=== PATIENT | male | born 1940 | race African-American/Black ===

== ENCOUNTER 2018-09-26 05:08 | Observation (INO) | payer MEDICARE ==
[2018-09-24 11:23] LABS: EOSINOPHILS # (AUTO) 0.4 (0.0-0.4); EOSINOPHILS % 11.5 % (0.0-6.0); HEMATOCRIT 34.1 % (38.2-49.6); HEMOGLOBIN 10.7 g/dL (14.0-18.0); LYMPHOCYTES # (AUTO) 1.2 (1.0-3.2); LYMPHOCYTES % 37.3 % (18.0-39.1); MEAN CORPUSCULAR HEMOGLOBIN 32.5 pg (28-32); MEAN CORPUSCULAR HGB CONC 31.4 g/dL (31-35); MEAN CORPUSCULAR VOLUME 103.6 fL (81-99); MONOCYTES # (AUTO) 0.3 (0.2-0.8); MONOCYTES % 10.8 % (4.4-11.3); NEUTROPHILS # (AUTO) 1.2 (2.1-6.9); NEUTROPHILS % 39.1 % (38.7-80.0); PLATELET COUNT 152 x10e3/uL (140-360); RED BLOOD COUNT 3.29 x10e6/uL (4.3-5.7); RED CELL DISTRIBUTION WIDTH 15.7 % (11.7-14.4)
[2018-09-24 11:45] LABS: ANION GAP 8.3 mmol/L (8-16); BLOOD UREA NITROGEN 15 mg/dL (7-26); BUN/CREATININE RATIO 17 (6-25); CALCIUM 8.9 mg/dL (8.4-10.2); CARBON DIOXIDE 29 mmol/L (22-29); CHLORIDE 105 mmol/L (98-107); CREATININE, SERUM 0.86 mg/dL (0.72-1.25); EST GLOMERULAR FILTRATION RATE > 60 ML/MIN (60-); GLUCOSE 89 mg/dL (74-118); POTASSIUM 3.3 mmol/L (3.5-5.1); SODIUM 139 mmol/L (136-145)
--- NOTE | 2018-09-24 13:13 | Diagnostic Imaging Report ---
EXAMINATION: PA and lateral views of the chest. COMPARISON: None CLINICAL HISTORY: Preadmission, urinary retention DISCUSSION: Lines/tubes: None. Lungs: Prominent interstitial markings, likely age-related. No pneumonia. No edema. Pleura: No pleural effusion or pneumothorax. Heart and mediastinum: The cardiomediastinal silhouette is normal. Bones and soft tissues: No acute bony abnormalities. IMPRESSION: No acute cardiopulmonary abnormalities. Age-related interstitial change. Signed by: Dr. Jeff Hung M.D. on 09/24/2018 1:10 PM
[~2018-09-26 05:08] MED LIST: ANORO ELLIPTA INH; ASPIR 8181 MG PO; AVODART0.5 MG PO; CARVEDILOL3.125 MG PO; CIPRO500 MG PO; COREG25 MG PO; FLOMAX0.4 MG PO; IBUPROFEN200 MG PO; OMEPRAZOLE40 MG PO; PANTOPRAZOLE SO40 MG PO; ULTRAM50 MG PO; VENTOLIN HFA18 GM; ZESTRIL20 MG PO; ZOFRAN4 MG PO
--- OUTSIDE RECORDS SUMMARY | 2018-09-26 05:21 | XMS REPORT ---
Author Author [facility] Address Unknown Phone Unavailable Care Team Providers Care Account Officer Name Role Phone Elias HILTON Unavailable Unavailable Payers Payer Name Policy Type Policy Number Effective Date Expiration Date Problems This patient has no known problems. Allergies, Adverse Reactions, Alerts Allergy Name Allergy Type Status Severity Reaction(s) Onset Date Inactive Date Treating Clinician Comments No Known Allergies DA Active U 2016-07-17 00:00:00 Medications This patient has no known medications. Results Test Description Test Time Test Comments Text Results Atomic Results Result Comments CHEST 2 VIEWS 2018-09-24 13:09:00 [place] [id number] Patient Name: YAZMIN HAYNES MR #: [id number] : 1940 Age/Sex: 77/M Req #: [id number] Adm Physician: Ordered by: MARIA C HILTON MD Report #: [id number] Location: OR Room/Bed: Procedure: [id number] DX/CHEST 2 VIEWS Exam Date: 09/24/18 Exam Time: 1100 REPORT STATUS: Signed EXAMINATION: PA and lateral views of the chest. RAMIREZ RISON: None CLINICAL HISTORY: Preadmission, urinary retention DISCUSSION: Lines/tubes: None. Lungs: Prominent interstitial markings, likely age-related. No pneumonia. No edema. Pleura: No pleural effusion or pneumothorax. Heart and mediastinum: The cardiomediastinal silhouette is normal. Bones and soft tissues: No acute bony abnormalities. IMPRESSION: No acute cardiopulmonary abnormalities. Age- related interstitial change. Signed by: Dr. Theresa Doe M.D. on 09/24/2018 1:10 PM Dictated By: THERESA DOE MD [id number] Transcribed By: JONES on 09/24/18 1310 COPY TO: MARIAC HILTON MD
--- OUTSIDE RECORDS SUMMARY | 2018-09-26 05:21 | XMS REPORT | Clinical Summary ---
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 Name Role Phone Luis F Walker MD PCP Allergies No Known Allergies Medications End Date Status Medication Sig Dispensed Refills Start Date Active PROAIR HFA 90 INL 1 PUFF PO 2 mcg/actuation inhaler QID 9 Active carvedilol (COREG) 3.125 TK 1 T PO BID 0 MG tablet 8 Active GENERLAC 10 gram/15 mL TK 5 ML PO 2 solution TID PRF 8 CONSTIPATION Active ondansetron (ZOFRAN) 4 MG TK 1 T PO Q 6 2 tablet H PRN 9 Active pantoprazole (PROTONIX) TK 1 T PO D 0 40 MG EC tablet 9 Active tamsulosin (FLOMAX) 0.4 TK 1 C PO D 0 mg capsule 9 Active traMADol (ULTRAM) 50 mg TK 1 T PO QID 2 tablet 9 Active ANORO ELLIPTA 62.5-25 INL 1 PUFF PO 2 mcg/actuation blister D 8 with device 07/03/2018 Discontinued promethazine (PHENERGAN) TK 1 T PO QID 1 25 MG tablet PRF NAUSEA 9 07/07/2018 clindamycin (CLEOCIN HCL) Take 1 30 capsule 0 300 MG capsule capsule (300 9 mg total) by mouth 3 (three) times a day for 10 days. 07/27/2018 colchicine 0.6 mg tablet Take 1 tablet 30 tablet 0 (0.6 mg 9 total) by mouth daily for 30 days. 08/02/2018 atorvastatin (LIPITOR) 40 Take 1 tablet 30 tablet 0 MG tablet (40 mg total) 9 by mouth nightly for 30 days. 08/02/2018 benzonatate (TESSALON) Take 1 30 capsule 0 100 MG capsule capsule (100 9 mg total) by mouth 3 (three) times a day as needed for cough for up to 30 days. 08/03/2018 aspirin 81 mg chewable Chew 1 tablet 30 tablet 0 tablet (81 mg total) 9 daily for 30 days. 08/03/2018 clopidogrel (PLAVIX) 75 Take 1 tablet 30 tablet 0 mg tablet (75 mg total) 9 by mouth daily for 30 days. Active Problems Problem Noted Date Cellulitis of great toe, right 06/25/2018 Encounters Care Team Description Date Type Specialty Usha Mas RN 07/05/2018 Telephone Cardiovascular Sunil Montes MD 07/01/2018 Anesthesia General Surgery Event Ramon Shine MD Right lower extremity arteriogram, angioplasty 07/01/2018 Surgery General Surgery Christiano Kang CRNA 06/28/2018 Anesthesia General Surgery Event Felicity Troy DPM RIGHT FOOT HALLUX AMPUTATION 06/28/2018 Surgery General Surgery Felicity Troy DPM 06/28/2018 Orders Only Podiatry Luis F Walker MD Cellulitis of great toe, right (Primary Dx); Gangrene of toe (HCC) 06/25/2018 [facility] General Internal Medicine - Encounter 07/03/2018 after 09/25/2017 Family History Medical History Relation Name Comments Cancer Brother Cancer Mother Heart disease Mother Hypertension Mother Cancer Sister Relation Name Status Comments Brother Father Mother Sister Social History Date Tobacco Use Types Packs/Day Years Used Quit: 06/05/2017 Former Smoker Cigarettes 1 72 Smokeless Tobacco: Never Used Alcohol Use Drinks/Week oz/Week Comments No hx of alcohol use Alcohol Habits Answer Date Recorded How often do you have a drink containing alcohol? Never 06/28/2018 How many drinks containing alcohol do you have on Not asked a typical day when you are drinking? How often do you have six or more drinks on one Not asked occasion? Sex Assigned at Date Recorded Not on file Industry Job Start Date Occupation Not on file Not on file Not on file Travel End Travel History Travel Start No recent travel history available. Last Filed Vital Signs Time Taken Vital Sign Reading 07/03/2018 10:47 AM QUALITY AUDITOR Blood Pressure 131/60 07/03/2018 10:47 AM QUALITY AUDITOR Pulse 64 07/03/2018 10:47 AM QUALITY AUDITOR Temperature 36.6 C (97.8 F) 07/03/2018 10:47 AM QUALITY AUDITOR Respiratory Rate 18 07/03/2018 10:47 AM QUALITY AUDITOR Oxygen Saturation 97% - Inhaled Oxygen - Concentration 07/02/2018 8:03 PM QUALITY AUDITOR Weight 63.5 kg (140 lb 1.6 oz) 07/01/2018 2:45 PM QUALITY AUDITOR Height 198.1 cm (6' 6") 07/02/2018 8:03 PM QUALITY AUDITOR Body Mass Index 16.19 Plan of Treatment Health Maintenance Due Date Last Done Comments SHINGLES VACCINES (#1) 1988 65+ PNEUMOCOCCAL VACCINE 11/01/2003 (1 of 2 - PCV13) PNEUMOCOCCAL 11/01/2003 POLYSACCHARIDE VACCINE AGE 65 AND OVER INFLUENZA VACCINE 01/02/2019 Implants Device Identifier Shelf Expiration Date Model / Serial / Lot Implanted Type Area Manufactur er 05/03/2020 [id number] / / [id number] Device Vasclr Clsr Baln Cath 10ml Cardiovasc N/A: N/A CARDINAL Lkng Syr 6fr 7fr [facility] [id number] Implants Implanted: 07/01/2018 (Quantity not on file) Procedures Comments Procedure Name Priority Date/Time Associated Diagnosis ESTIMATED GFR Routine 07/03/2018 6:14 AM QUALITY AUDITOR PHOSPHORUS LEVEL Routine 07/03/2018 6:14 AM QUALITY AUDITOR MAGNESIUM LEVEL Routine 07/03/2018 6:14 AM QUALITY AUDITOR BASIC METABOLIC PANEL Routine 07/03/2018 6:14 AM QUALITY AUDITOR HC COMPLETE BLD COUNT Routine 07/03/2018 W/AUTO DIFF 6:14 AM QUALITY AUDITOR ESTIMATED GFR Routine 07/02/2018 7:14 AM QUALITY AUDITOR PHOSPHORUS LEVEL Routine 07/02/2018 7:14 AM QUALITY AUDITOR MAGNESIUM LEVEL Routine 07/02/2018 7:14 AM QUALITY AUDITOR BASIC METABOLIC PANEL Routine 07/02/2018 7:14 AM QUALITY AUDITOR CBC WITH PLATELET AND Routine 07/02/2018 DIFFERENTIAL 7:14 AM QUALITY AUDITOR ESTIMATED GFR Routine 07/01/2018 5:24 AM QUALITY AUDITOR PROTHROMBIN TIME WITH INR Routine 07/01/2018 5:24 AM QUALITY AUDITOR PARTIAL THROMBOPLASTIN Routine 07/01/2018 TIME (PTT) 5:24 AM QUALITY AUDITOR TYPE AND SCREEN Routine 07/01/2018 5:24 AM QUALITY AUDITOR PHOSPHORUS LEVEL Routine 07/01/2018 5:24 AM QUALITY AUDITOR MAGNESIUM LEVEL Routine 07/01/2018 5:24 AM QUALITY AUDITOR BASIC METABOLIC PANEL Routine 07/01/2018 5:24 AM QUALITY AUDITOR HC COMPLETE BLD COUNT Routine 07/01/2018 W/AUTO DIFF 5:24 AM QUALITY AUDITOR SURGICAL PATHOLOGY Routine 06/28/2018 REQUEST 2:47 PM QUALITY AUDITOR GRAM STAIN Timed 06/28/2018 2:41 PM QUALITY AUDITOR AEROBIC CULTURE Timed 06/28/2018 2:41 PM QUALITY AUDITOR ANAEROBIC CULTURE Timed 06/28/2018 2:41 PM QUALITY AUDITOR GRAM STAIN Timed 06/28/2018 2:41 PM QUALITY AUDITOR AEROBIC CULTURE Timed 06/28/2018 2:41 PM QUALITY AUDITOR ANAEROBIC CULTURE Timed 06/28/2018 2:41 PM QUALITY AUDITOR WA AN ELECTIVE Routine 06/28/2018 SUPRAGLOTTIC AIRWAY 2:37 PM QUALITY AUDITOR Procedure Note - Jose Enrique Nelson MD - 06/28/2018 2:37 PM QUALITY AUDITOR ANESTHESIA INTUBATION Performed by: Christiano Kang CRNA Authorized by: Jose Enrique Nelson MD Location: OR Urgency: Elective Difficult Airway: No Anesthesio logist: Jose Enrique Nelson MD Resident/C RNA/AA: Christiano Kang CRNA Performed by: resident/C RNA/AA Preoxygena tereso with 100% O2: Yes C-spine Precaution s Maintained Throughout : Yes Mask Ventilatio n: Easy mask Final Airway Type: Supraglott ic airway Final LMA: Unique LMA Size: 4 Number of Attempts at Approach: 1 USPV KG EXTREMITY Routine 06/28/2018 BILATERAL 10:28 AM QUALITY AUDITOR MRI LOWER EXTREMITY WO STAT 06/27/2018 CONTRAST RIGHT 1:02 PM QUALITY AUDITOR URIC ACID LEVEL STAT 06/27/2018 10:44 AM QUALITY AUDITOR XR FOOT 3+ VW RIGHT STAT 06/27/2018 9:34 AM QUALITY AUDITOR US DUPLEX VENOUS LOWER Routine 06/26/2018 EXTREMITY RIGHT 11:36 AM QUALITY AUDITOR US DUPLEX ARTERIAL LOWER Routine 06/26/2018 EXTREMITY RIGHT 11:36 AM QUALITY AUDITOR ESTIMATED GFR Routine 06/26/2018 10:03 AM QUALITY AUDITOR BASIC METABOLIC PANEL Routine 06/26/2018 10:03 AM QUALITY AUDITOR HC COMPLETE BLD COUNT Routine 06/26/2018 W/AUTO DIFF 10:03 AM QUALITY AUDITOR after 09/25/2017 Results * Estimated GFR (07/03/2018 6:14 AM QUALITY AUDITOR) Only the most recent of 4 results within the time period is included. Estimated GFR >=90 mL/min/1.73 m2 [facility] Comment: [facility] CatergoryUnitsInte rpretation G1 >=90 Normal or high G2 60-89Mildly decreased Q8i01-29 Mildly to moderately decreased [id number] Moderately to severely decreased G4 15-29Severely decreased G5 <15Kidney failure The eGFR was calculated using the Chronic Kidney Disease Epidemiology Collaboration (CKD-EPI) equation. Interpretation is based on recommendations of the National Kidney Foundation-Kidney Disease Outcomes Quality Initiative (NKF-KDOQI) published in 2014. Specimen Plasma specimen Performing Organization Address City/State/Zipcode Phone Number [place] [address] [place] [address] PATHOLOGY AND GENOMIC MEDICINE [place] [address] [address] * CBC with platelet and differential (07/03/2018 6:14 AM QUALITY AUDITOR) Only the most recent of 4 results within the time period is included. WBC 4.6 4.2 - 11.0 k/uL [facility] RBC 3.20 (L) 4.04 - 5.86 m/uL [facility] HGB 9.9 (L) 13.0 - 17.3 g/dL [facility] HCT 31.8 (L) 34.0 - 45.0 % [facility] MCV 99.4 (H) 80.0 - 98.0 fL [facility] MCH 30.9 27.0 - 34.0 pg [facility] MCHC 31.1 (L) 31.5 - 36.5 g/dL [facility] RDW - SD 51.6 (H) 37.0 - 51.0 fL [facility] MPV 9.1 7.4 - 10.4 fL [facility] Platelet count 421 (H) 150 - 400 k/uL [facility] Nucleated RBC 0.00 /100 WBC [facility] Neutrophils 62.0 36.0 - 66.0 % [facility] Lymphocytes 21.4 (L) 24.0 - 44.0 % [facility] Monocytes 12.2 (H) 0.0 - 6.0 % [facility] Eosinophils 2.4 0.0 - 6.0 % [facility] Basophils 0.7 0.0 - 1.2 % [facility] Immature granulocytes 1.3 (H) 0.0 - 1.0 % [facility] Specimen Blood Performing Organization Address City/State/Zipcode Phone Number [facility] [place] [address] PATHOLOGY AND GENOMIC MEDICINE [place] [address] [address] * Phosphorus level (07/03/2018 6:14 AM QUALITY AUDITOR) Only the most recent of 3 results within the time period is included. Phosphorus 3.0 2.4 - 4.5 mg/dL [facility] Specimen Plasma specimen Performing Organization Address City/[facility] Phone Number [facility] [address] [place] [phone] PATHOLOGY AND GENOMIC MEDICINE [place] [phone] Ismael Alonso [address] * Magnesium level (07/03/2018 6:14 AM QUALITY AUDITOR) Only the most recent of 3 results within the time period is included. Magnesium 2.00 1.60 - 2.40 mg/dL [facility] Specimen Plasma specimen Performing Organization Address [facility] [place] [facility] Phone Number [place] [address] [place] [address] PATHOLOGY AND GENOMIC MEDICINE [place] [address] [address] * Basic metabolic panel (07/03/2018 6:14 AM QUALITY AUDITOR) Only the most recent of 4 results within the time period is included. Sodium 138 135 - 150 mEq/L [facility] Potassium 3.8 3.5 - 5.0 mEq/L [facility] Chloride 102 98 - 112 mEq/L [facility] CO2 27 24 - 31 mmol/L [facility] Anion gap 9@ANIO 7 - 15 mEq/L [facility] BUN 7 7 - 18 mg/dL [facility] Creatinine 0.60 (L) 0.70 - 1.20 mg/dL [facility] Glucose 109 (H) 65 - 100 mg/dL [facility] Calcium 8.5 (L) 8.8 - 10.2 mg/dL [facility] Specimen Plasma specimen Performing Organization Address [facility] [place] [facility] Phone Number [place] [phone] Ismael Alonso [place] [phone] PATHOLOGY AND GENOMIC MEDICINE [place] [address] Ismael Alonso [place] * Partial thromboplastin time, activated (07/01/2018 5:24 AM QUALITY AUDITOR) PTT 43.9 (H) 23.0 - 36.0 sec [facility] Comment: [facility] PTT therapeutic range for unfractionated heparin is 61.0-112.0 seconds which corresponds to Anti-Xa 0.3-0.7 U/ml. Note:Change in Panic Value The PTT Panic Value is changing from 110 sec. to 100 sec. due to new instrumentation and reagents. Correlation studies have been performed to validate this result. Specimen Blood Performing Organization Address [facility] Phone Number [facility] [address] [place] [address] PATHOLOGY AND [facility] MEDICINE [address] * Prothrombin time with INR (07/01/2018 5:24 AM QUALITY AUDITOR) Prothrombin time 14.0 11.5 - 14.5 sec [facility] INR 1.11 [facility] Comment: [facility] For patients on anticoagulant therapy, reference ranges below: Indication: INR Value Treatment of Venous Thrombosis, 2.0-3.0 pulmonary emboli, or prophylaxis of a venous thrombosis, or systemic emboli. High dose, high risk patients 3.0-4.5 with mechanical valves. NOTE:INR values over 3.0 are sometimes associated with gastrointestinal hemorrhage, especially values over 4.0. Specimen Blood Performing Organization Address [facility] Cent[facility] Phone Number [facility] [address] [place] [address] PATHOLOGY AND [facility] MEDICINE [address] * Type and screen (07/01/2018 5:24 AM QUALITY AUDITOR) ABO grouping A [facility] Rh type POS [facility] Antibody screen (gel) NEG [facility] Specimen Blood Performing Organization Address City/[facility]/Zipcode Phone Number [facility] [address] [place] [address] PATHOLOGY AND GENOMIC MEDICINE [address] * Surgical pathology request (06/28/2018 2:47 PM QUALITY AUDITOR) [facility] PATHOLOGY AND GENOMIC MEDICINE Surgical pathology report See link below for PDF Lab [facility] Report PATHOLOGY AND GENOMIC MEDICINE Result status This is Final Report for [facility] [id number] PATHOLOGY AND GENOMIC MEDICINE Performing Organization Address City/State/Zipcode Phone Number [facility] [address] [place] [address] PATHOLOGY AND GENOMIC MEDICINE * Aerobic culture (06/28/2018 2:41 PM QUALITY AUDITOR) Only the most recent of 2 results within the time period is included. Aerobic culture isolate Citrobacter freundii [facility] , susceptibility to follow (A) Comment: Specimen Information Specimen Source: Drainage Specimen Site: Toe Specimen Drainage - Toe Antibiotic Method Susceptibility Organism Ampicillin JENNIFER >16 mcg/mL: Resistant Citrobacter freundii Amoxicillin/Clavulanate JENNIFER 16/8 mcg/mL: Resistant Citrobacter freundii Amikacin JENNIFER <=4 mcg/mL: Susceptible Citrobacter freundii Aztreonam JENNIFER <=1 mcg/mL: Susceptible Citrobacter freundii Ceftazidime JENNIFER <=0.5 mcg/mL: Susceptible Citrobacter freundii Ciprofloxacin JENNIFER 1 mcg/mL: Susceptible Citrobacter freundii Ceftriaxone JENNIFER <=0.5 mcg/mL: Susceptible Citrobacter freundii Cefuroxime Sodium JENNIFER <=4 mcg/mL: Resistant Citrobacter freundii Cefazolin JENNIFER >32 mcg/mL: Resistant Citrobacter freundii Cefepime JENNIFER <=0.5 mcg/mL: Susceptible Citrobacter freundii Cefoxitin JENNIFER >16 mcg/mL: Resistant Citrobacter freundii Gentamicin JENNIFER 1 mcg/mL: Susceptible Citrobacter freundii Imipenem JENNIFER 0.5 mcg/mL: Susceptible Citrobacter freundii Levofloxacin JENNIFER <=1 mcg/mL: Susceptible Citrobacter freundii Meropenem JENNIFER <=0.125 mcg/mL: Susceptible Citrobacter freundii Tobramycin JENNIFER 1 mcg/mL: Susceptible Citrobacter freundii Ampicillin/Sulbactam JENNIFER 4/2 mcg/mL: Resistant Citrobacter freundii Trimethoprim/Sulfamethoxazole JENNIFER >2/38 mcg/mL: Resistant Citrobacter freundii Tetracycline JENNIFER <=1 mcg/mL: Susceptible Citrobacter freundii Piperacillin/Tazobactam JENNIFER <=2/4 mcg/mL: Susceptible Citrobacter freundii Ertapenem JENNIFER <=0.125 mcg/mL: Susceptible Citrobacter freundii Tigecycline JENNIFER 1 mcg/mL: Susceptible Citrobacter freundii Performing Organization Address [facility] Cent[facility]ode Phone Number [facility] [place] [address] PATHOLOGY [place] [address] HOSPITAL * Gram stain (06/28/2018 2:41 PM QUALITY AUDITOR) Only the most recent of 2 results within the time period is included. Gram stain isolate Few WBC's [facility] Rare Gram positive rods [facility] Few Gram positive cocci in pairs Comment: Specimen Information Specimen Source: Drainage Specimen Site: Toe Specimen Drainage - Toe Performing Organization Address [facility] Cent[facility] Phone Number [facility] [place] [address] PATHOLOGY AND GENOMIC MEDICINE [address] * Anaerobic culture (06/28/2018 2:41 PM QUALITY AUDITOR) Only the most recent of 2 results within the time period is included. Anaerobic culture isolate Delvis [facility] (Peptostreptococcus) tappen ([facility] Comment: Specimen Information Specimen Source: Drainage Specimen Site: Toe Specimen Drainage - Toe Performing Organization Address [facility] Cent[facility]ode Phone Number [facility] [place] [address] PATHOLOGY [place] [address] HOSPITAL * USPV KG Extremity Bilateral (06/28/2018 10:28 AM QUALITY AUDITOR) Narrative Performed At KG extremity bilateral. [facility] CLINICAL INFORMATION: Please obtain KG bilaterally COMPARISON: none. TECHNIQUE: Ankle brachial indices of the lower legs with pulse Doppler waveforms and peak systolic velocities. IMPRESSION: RIGHT: PSV (mmHg)KG Brachial:142 Ankle (PT):800.56 Ankle (DP): 610.43 Digit:12 0.08 LEFT: PSV (mmHg)KG Brachial:125 Ankle (PT):143 1.01 Ankle (DP): 121 0.85 Digit:85 0.60 [id number] Procedure Note Interface, Radiology Results Incoming - 06/28/2018 10:34 AM QUALITY AUDITOR KG extremity bilateral. CLINICAL INFORMATION: Please obtain KG bilaterally COMPARISON: none. TECHNIQUE: Ankle brachial indices of the lower legs with pulse Doppler waveforms and peak systolic velocities. IMPRESSION: RIGHT: PSV (mmHg) KG Brachial: 142 Ankle (PT): 80 0.56 Ankle (DP): 61 0.43 Digit: 12 0.08 LEFT: PSV (mmHg) KG Brachial: 125 Ankle (PT): 143 1.01 Ankle (DP): 121 0.85 Digit: 85 0.60 [facility]-[id number] Performing Organization Address City/State/Zipcode Phone Number [facility] [address] [place] [address] * MRI Lower Extremity Wo Contrast Right (06/27/2018 1:02 PM QUALITY AUDITOR) Narrative Performed At EXAMINATION:MRI LOWER EXTREMITY WO CONTRAST RIGHT [facility] CL[facility]ICAL H[facility]:osteo TECHNIQUE:Multiplanar multisequence MR imaging of theright forefootwas performed without contrast. COMPARISON:Right foot radiographs from June 27, 2018. FINDINGS: Soft tissue tissue ulceration is present at the great toe with prominent erosion, marrow replacement, and associated marrow edema at the great toe distal phalanx. Similar fragmentation and erosion is also seen at the distal aspect of the great toe proximal phalanx with associated marrow edema. Septic arthritis of the first interphalangeal joint is also present. T1 and T2 hypointense foci within the great toe proximal and distal phalanges most likely represents intraosseous air foci. Sesamoids are intact. Susceptibility artifact from foreign body at the level of the fifth metatarsal limits evaluation. Remainder of the visualized phalanges are grossly unremarkable. No drainable fluid collections. Generalized intrinsic muscle atrophy. 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 Septic arthritis of the first interphalangeal joint. [id number] Procedure Note Interface, Radiology Results Incoming - 06/27/2018 1:43 PM QUALITY AUDITOR EXAMINATION: MRI LOWER EXTREMITY WO CONTRAST RIGHT CLINICAL HISTORY: osteo TECHNIQUE: Multiplanar multisequence MR imaging of the right forefoot was performed without contrast. COMPARISON: Right foot radiographs from June 27, 2018. FINDINGS: Soft tissue tissue ulceration is present at the great toe with prominent erosion, marrow replacement, and associated marrow edema at the great toe distal phalanx. Similar fragmentation and erosion is also seen at the distal aspect of the great toe proximal phalanx with associated marrow edema. Septic arthritis of the first interphalangeal joint is also present. T1 and T2 hypointense foci within the great toe proximal and distal phalanges most likely represents intraosseous air foci. Sesamoids are intact. Susceptibility artifact from foreign body at the level of the fifth metatarsal limits evaluation. Remainder of the visualized phalanges are grossly unremarkable. No drainable fluid collections. Generalized intrinsic muscle atrophy. 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 Septic arthritis of the first interphalangeal joint. [facility]-[id number] Performing Organization Address City/State/Zipcode Phone Number [facility] [address] [place] [address] * Uric acid level (06/27/2018 10:44 AM QUALITY AUDITOR) Uric acid 1.4 (L) 3.4 - 7.0 mg/dL [facility] Specimen Plasma specimen Performing Organization Address City/[facility]/Zipcode Phone Number [facility] [place] [address] PATHOLOGY AND GENOMIC MEDICINE [address] * XR Foot 3+ Vw Right (06/27/2018 9:34 AM QUALITY AUDITOR) Narrative Performed At EXAMINATION:XR FOOT 3VW RIGHT [facility] CLINICAL HISTORY:Osteomyelitis suspectedfoot swellingdiabetic COMPARISON:None. IMPRESSION: 1.Evaluation of the right foot demonstrates subcutaneous emphysema likely relating to gas gangrene predominantly involving the first digit. There is cortical irregularity and lytic defect involving the tuft of the distal first phalanx in addition to increased lucency involving the proximal first phalanx near the interphalangeal joint space. Findings are concerning for osteomyelitis. 2.Linear radiopaque foreign body involving the plantar soft tissues of the lateral right foot adjacent to the fifth metatarsal. 3.Right ankle and midfoot osteoarthritis. [facility]-[id number] Procedure Note Interface, Radiology Results Incoming - 06/27/2018 10:49 AM QUALITY AUDITOR EXAMINATION: XR FOOT 3 VW RIGHT CLINICAL HISTORY: Osteomyelitis suspected foot swelling diabetic COMPARISON: None. IMPRESSION: 1. Evaluation of the right foot demonstrates subcutaneous emphysema likely relating to gas gangrene predominantly involving the first digit. There is cortical irregularity and lytic defect involving the tuft of the distal first phalanx in addition to increased lucency involving the proximal first phalanx near the interphalangeal joint space. Findings are concerning for osteomyelitis. 2. Linear radiopaque foreign body involving the plantar soft tissues of the lateral right foot adjacent to the fifth metatarsal. 3. Right ankle and midfoot osteoarthritis. [facility]-[id number] Performing Organization Address City/[facility] [place]/Zipcode Phone Number [facility] [address] [place] [address] * Us duplex venous lower extremity (06/26/2018 11:36 AM QUALITY AUDITOR) Narrative Performed At EXAMINATION:US DUPLEX VENOUS LOWER EXTREMITY RIGHT [facility]:Leg cold painfulsudden onsetvascular compromise suspected COMPARISON:None. TECHNIQUE:Grayscale, color Doppler, and spectral waveform analysis of the right lower extremity deep venous system was performed. The common femoral, superficial femoral, proximal deep femoral, greater saphenous, and popliteal veins were evaluated. The calf veins were also evaluated. FINDINGS: The right common femoral, superficial femoral, and popliteal veins are compressible as is the limited evaluation of the left common femoral vein. They demonstrate normal venous waveforms and response to augmentation. There is flow in the visualized calf veins. There is no evidence of a popliteal or Berg's cyst. IMPRESSION: No evidence of DVT within the right lower extremity named vessels as described above. [facility]-[id number] Procedure Note Interface, Radiology Results Incoming - 06/26/2018 11:41 AM QUALITY AUDITOR EXAMINATION: US DUPLEX VENOUS LOWER EXTREMITY RIGHT CLINICAL HISTORY: Leg cold painful sudden onset vascular compromise suspected COMPARISON: None. TECHNIQUE: Grayscale, color Doppler, and spectral waveform analysis of the right lower extremity deep venous system was performed. The common femoral, superficial femoral, proximal deep femoral, greater saphenous, and popliteal veins were evaluated. The calf veins were also evaluated. FINDINGS: The right common femoral, superficial femoral, and popliteal veins are compressible as is the limited evaluation of the left common femoral vein. They demonstrate normal venous waveforms and response to augmentation. There is flow in the visualized calf veins. There is no evidence of a popliteal or Berg's cyst. IMPRESSION: No evidence of DVT within the right lower extremity named vessels as described above. [id number] Performing Organization Address City/[facility]/Zipcode Phone Number [facility] [address] [place] [address] * Us duplex arterial lower extremity (06/26/2018 11:36 AM QUALITY AUDITOR) Narrative Performed At EXAM: Right lower extremity arterial Doppler [facility] HISTORY: Cold leg. TECHNIQUE: Real-time as well as pulsed and color Doppler evaluation of right common femoral, femoral, popliteal, posterior tibial, anterior tibial, and dorsalis pedis arteries are evaluated. The examination includes a full duplex Doppler scan of the blood vessels (real-time P mode grayscale, Doppler spectral analysis, and Doppler color flow imaging). IMPRESSION: The right lower extremity arterial vasculature is of normal course, caliber, and contour without aneurysmal dilatation or focal dissection. Scattered vascular calcifications are seen. 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 PEAK SYSTOLIC VELOCITIES: RIGHT LEG: COMMON FEMORAL:266 cm/s FEMORAL: Proximal: 63 cm/s Mid:225 cm/s Distal:93 cm/s POPLITEAL: Proximal: 70 cm/s Mid:52 cm/s Distal:43 cm/s POSTERIOR TIBIAL: Proximal: 40 cm/s Mid:34 cm/s Distal:45 cm/s ANTERIOR TIBIAL: Proximal: 80 cm/s Mid:35 cm/s Distal:54 cm/s DORSALIS PEDIS: 17 cm/s ABIs: Right DP: Right PT: [id number] Procedure Note Hm Interface, Radiology Results Incoming - 06/26/2018 11:44 AM QUALITY AUDITOR EXAM: Right lower extremity arterial Doppler HISTORY: Cold leg. TECHNIQUE: Real-time as well as pulsed and color Doppler evaluation of right common femoral, femoral, popliteal, posterior tibial, anterior tibial, and dorsalis pedis arteries are evaluated. The examination includes a full duplex Doppler scan of the blood vessels (real-time P mode grayscale, Doppler spectral analysis, and Doppler color flow imaging). IMPRESSION: The right lower extremity arterial vasculature is of normal course, caliber, and contour without aneurysmal dilatation or focal dissection. Scattered vascular calcifications are seen. 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 PEAK SYSTOLIC VELOCITIES: RIGHT LEG: COMMON FEMORAL: 266 cm/s FEMORAL: Proximal: 63 cm/s Mid: 225 cm/s Distal: 93 cm/s POPLITEAL: Proximal: 70 cm/s Mid: 52 cm/s Distal: 43 cm/s POSTERIOR TIBIAL: Proximal: 40 cm/s Mid: 34 cm/s Distal: 45 cm/s ANTERIOR TIBIAL: Proximal: 80 cm/s Mid: 35 cm/s Distal: 54 cm/s DORSALIS PEDIS: 17 cm/s ABIs: Right DP: Right PT: [id number] Performing Organization Address City/State/Zipcode Phone Number [facility] [address] [place] [address] after 09/25/2017 Insurance Payer Benefit Subscriber ID Type Phone Address Plan / Group [employer] CIGNA xxxxxxxx PPO [employer] PPO [employer] MEDICAID MEDICAID xxxxxxxxx Medicaid Advance Directives Patient has advance care planning documents on file. For more information, rosie gasca contact: Paulino Perera [address] [place] [address]
[2018-09-26] MEDS ORDERED: CEFTRIAXONE SOD 1 GM/NS 50 ML 50 ML IV ONE (05:22)
--- NOTE | 2018-09-26 07:25 | NUR ---
SPIRITUAL CARE - Pre-Surgery Assessment: Pt in bed. Pt reported supportive attention from family and friends. Intervention: I provided pastoral presence, hospitality, and sympathetic listening. I acquainted pt with availability of architect intern while hospitalized. Outcome: Pt expressed appreciation for visit. No need for follow up indicated at this time. ROLANDO Lawslain Spiritual Care Department O: [phone] Pager: [phone] ([phone] calling from)
[2018-09-26] MEDS ORDERED: BUPIVACAINE 7.5MG/ML /DEXTROSE 82.5MG/ML 2 ML AMP INJ ONE (07:30)
[2018-09-26] MEDS ORDERED: BELLADONNA/OPIUM 60 MG SUPP PR ONE (08:14)
--- OUTSIDE RECORDS SUMMARY | 2018-09-26 09:17 | XMS REPORT | Clinical Summary ---
Author Author [facility] Organization [facility] Address Unknown Phone Unavailable Care Team Providers Care Records Management Engineer Name Role Phone Luis F Walker MD [...] (Primary Dx); Gangrene of toe (HCC) 06/25/2018 [facility] General Internal Medicine - Encounter 07/03/2018 after [...] Taken Vital Sign Reading 07/03/2018 10:47 AM BUSINESS PROCESS ENGINEER Blood Pressure 131/60 07/03/2018 10:47 AM BUSINESS PROCESS ENGINEER Pulse 64 07/03/2018 10:47 AM BUSINESS PROCESS ENGINEER Temperature 36.6 C (97.8 F) 07/03/2018 10:47 AM BUSINESS PROCESS ENGINEER Respiratory Rate 18 07/03/2018 10:47 AM BUSINESS PROCESS ENGINEER Oxygen Saturation 97% - Inhaled Oxygen - Concentration 07/02/2018 8:03 PM BUSINESS PROCESS ENGINEER Weight 63.5 kg (140 lb 1.6 oz) 07/01/2018 2:45 PM BUSINESS PROCESS ENGINEER Height 198.1 cm (6' 6") 07/02/2018 8:03 PM BUSINESS PROCESS ENGINEER Body Mass Index 16.19 Plan of Treatment Health Maintenance Due Date Last Done Comments SHINGLES VACCINES (#1) 1988 65+ PNEUMOCOCCAL VACCINE 11/01/2003 (1 of 2 - PCV13) PNEUMOCOCCAL 11/01/2003 POLYSACCHARIDE VACCINE AGE 65 AND OVER INFLUENZA VACCINE 01/02/2019 Implants Device Identifier Shelf Expiration Date Model / Serial / Lot Implanted Type Area Manufactur er 05/03/2020 [id number] / / [id number] Device Vasclr Clsr Baln Cath 10ml Cardiovasc N/A: N/A CARDINAL Lkng Syr 6fr 7fr [facility] [id number] Implants Implanted: 07/01/2018 (Quantity not on file) Procedures Comments Procedure Name Priority Date/Time Associated Diagnosis ESTIMATED GFR Routine 07/03/2018 6:14 AM BUSINESS PROCESS ENGINEER PHOSPHORUS LEVEL Routine 07/03/2018 6:14 AM BUSINESS PROCESS ENGINEER MAGNESIUM LEVEL Routine 07/03/2018 6:14 AM BUSINESS PROCESS ENGINEER BASIC METABOLIC PANEL Routine 07/03/2018 6:14 AM BUSINESS PROCESS ENGINEER HC COMPLETE BLD COUNT Routine 07/03/2018 W/AUTO DIFF 6:14 AM BUSINESS PROCESS ENGINEER ESTIMATED GFR Routine 07/02/2018 7:14 AM BUSINESS PROCESS ENGINEER PHOSPHORUS LEVEL Routine 07/02/2018 7:14 AM BUSINESS PROCESS ENGINEER MAGNESIUM LEVEL Routine 07/02/2018 7:14 AM BUSINESS PROCESS ENGINEER BASIC METABOLIC PANEL Routine 07/02/2018 7:14 AM BUSINESS PROCESS ENGINEER CBC WITH PLATELET AND Routine 07/02/2018 DIFFERENTIAL 7:14 AM BUSINESS PROCESS ENGINEER ESTIMATED GFR Routine 07/01/2018 5:24 AM BUSINESS PROCESS ENGINEER PROTHROMBIN TIME WITH INR Routine 07/01/2018 5:24 AM BUSINESS PROCESS ENGINEER PARTIAL THROMBOPLASTIN Routine 07/01/2018 TIME (PTT) 5:24 AM BUSINESS PROCESS ENGINEER TYPE AND SCREEN Routine 07/01/2018 5:24 AM BUSINESS PROCESS ENGINEER PHOSPHORUS LEVEL Routine 07/01/2018 5:24 AM BUSINESS PROCESS ENGINEER MAGNESIUM LEVEL Routine 07/01/2018 5:24 AM BUSINESS PROCESS ENGINEER BASIC METABOLIC PANEL Routine 07/01/2018 5:24 AM BUSINESS PROCESS ENGINEER HC COMPLETE BLD COUNT Routine 07/01/2018 W/AUTO DIFF 5:24 AM BUSINESS PROCESS ENGINEER SURGICAL PATHOLOGY Routine 06/28/2018 REQUEST 2:47 PM BUSINESS PROCESS ENGINEER GRAM STAIN Timed 06/28/2018 2:41 PM BUSINESS PROCESS ENGINEER AEROBIC CULTURE Timed 06/28/2018 2:41 PM BUSINESS PROCESS ENGINEER ANAEROBIC CULTURE Timed 06/28/2018 2:41 PM BUSINESS PROCESS ENGINEER GRAM STAIN Timed 06/28/2018 2:41 PM BUSINESS PROCESS ENGINEER AEROBIC CULTURE Timed 06/28/2018 2:41 PM BUSINESS PROCESS ENGINEER ANAEROBIC CULTURE Timed 06/28/2018 2:41 PM BUSINESS PROCESS ENGINEER NH AN ELECTIVE Routine 06/28/2018 SUPRAGLOTTIC AIRWAY 2:37 PM BUSINESS PROCESS ENGINEER Procedure Note - Jose Enrique Nelson MD - 06/28/2018 2:37 PM BUSINESS PROCESS ENGINEER ANESTHESIA INTUBATION Performed by: Christiano Kang CRNA [...] KG EXTREMITY Routine 06/28/2018 BILATERAL 10:28 AM BUSINESS PROCESS ENGINEER MRI LOWER EXTREMITY WO STAT 06/27/2018 CONTRAST RIGHT 1:02 PM BUSINESS PROCESS ENGINEER URIC ACID LEVEL STAT 06/27/2018 10:44 AM BUSINESS PROCESS ENGINEER XR FOOT 3+ VW RIGHT STAT 06/27/2018 9:34 AM BUSINESS PROCESS ENGINEER US DUPLEX VENOUS LOWER Routine 06/26/2018 EXTREMITY RIGHT 11:36 AM BUSINESS PROCESS ENGINEER US DUPLEX ARTERIAL LOWER Routine 06/26/2018 EXTREMITY RIGHT 11:36 AM BUSINESS PROCESS ENGINEER ESTIMATED GFR Routine 06/26/2018 10:03 AM BUSINESS PROCESS ENGINEER BASIC METABOLIC PANEL Routine 06/26/2018 10:03 AM BUSINESS PROCESS ENGINEER HC COMPLETE BLD COUNT Routine 06/26/2018 W/AUTO DIFF 10:03 AM BUSINESS PROCESS ENGINEER after 09/25/2017 Results * Estimated GFR (07/03/2018 6:14 AM BUSINESS PROCESS ENGINEER) Only the most recent of 4 results within the time period is included. Estimated GFR >=90 mL/min/1.73 m2 PAULINO PERERA Comment: [facility] CatergoryUnitsInte rpretation G1 >=90 Normal or high G2 60-89Mildly decreased Y8a03-70 Mildly to moderately decreased A5m42-90 Moderately to severely decreased G4 15-29Severely decreased G5 <15Kidney failure The eGFR was calculated using the Chronic Kidney Disease Epidemiology Collaboration (CKD-EPI) equation. Interpretation is based on recommendations of the National Kidney Foundation-Kidney Disease Outcomes Quality Initiative (NKF-KDOQI) published in 2014. Specimen Plasma specimen Performing Organization Address City/State/Zipcode Phone Number [place] [address] [place] [address] PATHOLOGY AND GENOMIC MEDICINE [place] [address] [address] * CBC with platelet and differential (07/03/2018 6:14 AM BUSINESS PROCESS ENGINEER) Only the most recent of 4 results within the time period is included. WBC 4.6 4.2 - 11.0 k/uL [facility] RBC 3.20 (L) 4.04 - 5.86 m/uL [facility] HGB 9.9 (L) 13.0 - 17.3 g/dL [facility] HCT 31.8 (L) 34.0 - 45.0 % [facility] MCV 99.4 (H) 80.0 - 98.0 fL [facility] MCH 30.9 27.0 - 34.0 pg [facility] MCHC 31.1 (L) 31.5 - 36.5 g/dL [facility] RDW - SD 51.6 (H) 37.0 - 51.0 fL [facility] MPV 9.1 7.4 - 10.4 fL [facility] Platelet count 421 (H) 150 - 400 k/uL [facility] Nucleated RBC 0.00 /100 WBC [facility] Neutrophils 62.0 36.0 - 66.0 % [facility] Lymphocytes 21.4 (L) 24.0 - 44.0 % [facility] Monocytes 12.2 (H) 0.0 - 6.0 % [facility] Eosinophils 2.4 0.0 - 6.0 % [facility] Basophils 0.7 0.0 - 1.2 % [facility] Immature granulocytes 1.3 (H) 0.0 - 1.0 % [facility] Specimen Blood Performing Organization Address City/State/Zipcode Phone Number [facility] [place] [address] PATHOLOGY AND GENOMIC MEDICINE [place] [address] [address] * Phosphorus level (07/03/2018 6:14 AM BUSINESS PROCESS ENGINEER) Only the most recent of 3 results within the time period is included. Phosphorus 3.0 2.4 - 4.5 mg/dL [facility] Specimen Plasma specimen Performing Organization Address City/[facility] Phone Number [facility] DEPARTMENT OF [address] [place] [phone] PATHOLOGY AND GENOMIC MEDICINE [place] [id number] [address] * Magnesium level (07/03/2018 6:14 AM BUSINESS PROCESS ENGINEER) Only the most recent of 3 results within the time period is included. Magnesium 2.00 1.60 - 2.40 mg/dL [facility] Specimen Plasma specimen Performing Organization Address [facility] Phone Number [place] [address] [place] [address] PATHOLOGY AND GENOMIC MEDICINE [place] [address] [address] * Basic metabolic panel (07/03/2018 6:14 AM BUSINESS PROCESS ENGINEER) Only the most recent of 4 results within the time period is included. Sodium 138 135 - 150 mEq/L [facility] Potassium 3.8 3.5 - 5.0 mEq/L [facility] Chloride 102 98 - 112 mEq/L [facility] CO2 27 24 - 31 mmol/L [facility] Anion gap 9@ANIO 7 - 15 mEq/L [facility] BUN 7 7 - 18 mg/dL [facility] Creatinine 0.60 (L) 0.70 - 1.20 mg/dL [facility] Glucose 109 (H) 65 - 100 mg/dL [facility] Calcium 8.5 (L) 8.8 - 10.2 mg/dL [facility] Specimen Plasma specimen Performing Organization Address [facility] Phone Number [place] [phone] [place] [phone] PATHOLOGY AND GENOMIC MEDICINE [place] [address] [address] * Partial thromboplastin time, activated (07/01/2018 5:24 AM BUSINESS PROCESS ENGINEER) PTT 43.9 (H) 23.0 - 36.0 sec [facility] Comment: [facility] PTT therapeutic range for unfractionated heparin is 61.0-112.0 seconds which corresponds to Anti-Xa 0.3-0.7 U/ml. Note:Change in Panic Value The PTT Panic Value is changing from 110 sec. to 100 sec. due to new instrumentation and reagents. Correlation studies have been performed to validate this result. Specimen Blood Performing Organization Address [facility] Centercode Phone Number [facility] DEPARTMENT [address] [place] [address] PATHOLOGY AND [facility] MEDICINE [address] * Prothrombin time with INR (07/01/2018 5:24 AM BUSINESS PROCESS ENGINEER) Prothrombin time 14.0 11.5 - 14.5 sec [facility] INR 1.11 [facility] Comment: [facility] For patients on anticoagulant therapy, reference ranges below: Indication: INR Value Treatment of Venous Thrombosis, 2.0-3.0 pulmonary emboli, or prophylaxis of a venous thrombosis, or systemic emboli. High dose, high risk patients 3.0-4.5 with mechanical valves. NOTE:INR values over 3.0 are sometimes associated with gastrointestinal hemorrhage, especially values over 4.0. Specimen Blood Performing Organization Address [facility] Centercode Phone Number [facility] DEPARTMENT [address] [place] [address] PATHOLOGY AND [facility] MEDICINE [address] * Type and screen (07/01/2018 5:24 AM BUSINESS PROCESS ENGINEER) ABO grouping A [facility] Rh type POS [facility] Antibody screen (gel) NEG [facility] Specimen Blood Performing Organization Address City/[facility]/Zipcode Phone Number [facility] DEPARTMENT OF [address] [place] [address] PATHOLOGY AND GENOMIC MEDICINE [address] * Surgical pathology request (06/28/2018 2:47 PM BUSINESS PROCESS ENGINEER) [facility] DEPARTMENT OF PATHOLOGY AND GENOMIC MEDICINE Surgical pathology report See link below for PDF Lab [facility] DEPARTMENT OF Report PATHOLOGY AND GENOMIC MEDICINE Result status This is Final Report for [facility] DEPARTMENT OF [id number] PATHOLOGY AND GENOMIC MEDICINE Performing Organization Address City/State/Zipcode Phone Number [facility] DEPARTMENT OF [address] [place] [address] PATHOLOGY AND GENOMIC MEDICINE * Aerobic culture (06/28/2018 2:41 PM BUSINESS PROCESS ENGINEER) Only the most recent of 2 results within the time period is included. Aerobic culture isolate Citrobacter freundii [facility] , susceptibility to follow (A) Comment: Specimen [...] mcg/mL: Susceptible Citrobacter freundii Performing Organization Address [facility] Centercode Phone Number [facility] [address] PATHOLOGY [place] [address] HOSPITAL * Gram stain (06/28/2018 2:41 PM BUSINESS PROCESS ENGINEER) Only the most recent of 2 results within the time period is included. Gram stain isolate Few WBC's [facility] Rare Gram positive rods [facility] Few Gram positive cocci in pairs Comment: Specimen Information Specimen Source: Drainage Specimen Site: Toe Specimen Drainage - Toe Performing Organization Address [facility] Centercode Phone Number [facility] [address] PATHOLOGY AND GENOMIC MEDICINE [address] * Anaerobic culture (06/28/2018 2:41 PM BUSINESS PROCESS ENGINEER) Only the most recent of 2 results within the time period is included. Anaerobic culture isolate Delvis [facility] (Peptostreptococcus) [place] ([facility] Comment: Specimen Information Specimen Source: Drainage Specimen Site: Toe Specimen Drainage - Toe Performing Organization Address [facility] Centercode Phone Number [facility] [address] PATHOLOGY [place] [address] HOSPITAL * USPV KG Extremity Bilateral (06/28/2018 10:28 AM BUSINESS PROCESS ENGINEER) Narrative Performed At KG extremity bilateral. [facility] CLINICAL INFORMATION: Please obtain KG bilaterally COMPARISON: none. TECHNIQUE: Ankle brachial indices of the lower legs with pulse Doppler waveforms and peak systolic velocities. IMPRESSION: RIGHT: PSV (mmHg)KG Brachial:142 Ankle (PT):800.56 Ankle (DP): 610.43 Digit:12 0.08 LEFT: PSV (mmHg)KG Brachial:125 Ankle (PT):143 1.01 Ankle (DP): 121 0.85 Digit:85 0.60 [id number] Procedure Note Interface, Radiology Results Incoming - 06/28/2018 10:34 AM BUSINESS PROCESS ENGINEER KG extremity bilateral. CLINICAL INFORMATION: Please obtain KG bilaterally COMPARISON: none. TECHNIQUE: Ankle brachial indices of the lower legs with pulse Doppler waveforms and peak systolic velocities. IMPRESSION: RIGHT: PSV (mmHg) KG Brachial: 142 Ankle (PT): 80 0.56 Ankle (DP): 61 0.43 Digit: 12 0.08 LEFT: PSV (mmHg) KG Brachial: 125 Ankle (PT): 143 1.01 Ankle (DP): 121 0.85 Digit: 85 0.60 [facility]-[id number] Performing Organization Address City/State/Zipcode Phone Number [facility] [address] [place] [address] * MRI Lower Extremity Wo Contrast Right (06/27/2018 1:02 PM BUSINESS PROCESS ENGINEER) Narrative Performed At EXAMINATION:MRI LOWER EXTREMITY WO CONTRAST RIGHT [facility] CLINICAL HISTORY:osteo TECHNIQUE:Multiplanar multisequence MR imaging of [...] Septic arthritis of the first interphalangeal joint. [facility]-[id number] Procedure Note Interface, Radiology Results Incoming - 06/27/2018 1:43 PM BUSINESS PROCESS ENGINEER EXAMINATION: MRI LOWER EXTREMITY WO CONTRAST RIGHT [...] Septic arthritis of the first interphalangeal joint. [facility]-[id number] Performing Organization Address City/State/Zipcode Phone Number [facility] [address] [place] [address] * Uric acid level (06/27/2018 10:44 AM BUSINESS PROCESS ENGINEER) Uric acid 1.4 (L) 3.4 - 7.0 mg/dL [facility] Specimen Plasma specimen Performing Organization Address City/[facility]/Zipcode Phone Number [facility] DEPARTMENT OF [facility] [place] [address] PATHOLOGY AND GENOMIC MEDICINE [address] * XR Foot 3+ Vw Right (06/27/2018 9:34 AM BUSINESS PROCESS ENGINEER) Narrative Performed At EXAMINATION:XR FOOT 3VW RIGHT [...] fifth metatarsal. 3.Right ankle and midfoot osteoarthritis. [facility]-[id number] Procedure Note Interface, Radiology Results Incoming - 06/27/2018 10:49 AM BUSINESS PROCESS ENGINEER EXAMINATION: XR FOOT 3 VW RIGHT CLINICAL [...] metatarsal. 3. Right ankle and midfoot osteoarthritis. [facility]-[id number] Performing Organization Address City/[facility]/Zipcode Phone Number [facility] [address] [place] [address] * Us duplex venous lower extremity (06/26/2018 11:36 AM BUSINESS PROCESS ENGINEER) Narrative Performed At EXAMINATION:US DUPLEX VENOUS LOWER EXTREMITY RIGHT [facility] CLINICAL HISTORY:Leg cold painfulsudden onsetvascular compromise suspected [...] lower extremity named vessels as described above. [facility]-[id number] Procedure Note Interface, Radiology Results Incoming - 06/26/2018 11:41 AM BUSINESS PROCESS ENGINEER EXAMINATION: US DUPLEX VENOUS LOWER EXTREMITY RIGHT [...] lower extremity named vessels as described above. [facility]-[id number] Performing Organization Address City/[facility]/Zipcode Phone Number [facility] [address] [place] [address] * Us duplex arterial lower extremity (06/26/2018 11:36 AM BUSINESS PROCESS ENGINEER) Narrative Performed At EXAM: Right lower extremity [...] 17 cm/s ABIs: Right DP: Right PT: [id number] Procedure Note Hm Interface, Radiology Results Incoming - 06/26/2018 11:44 AM BUSINESS PROCESS ENGINEER EXAM: Right lower extremity arterial Doppler HISTORY: [...] 17 cm/s ABIs: Right DP: Right PT: [id number] Performing Organization Address City/State/Zipcode Phone Number [facility] [address] [place] [address] after 09/25/2017 Insurance Payer Benefit Subscriber ID Type Phone Address Plan / Group [employer] CIGNA xxxxxxxx PPO HEALTHSPRI NG PPO MCR MEDICAID MEDICAID xxxxxxxxx Medicaid Advance Directives Patient has advance care planning documents on file. For more information, rosie gasca contact: Paulino Perera [address] [place] [address]
--- NOTE | 2018-09-26 09:23 | NUR ---
report received. patient to arrive on unit via stretcher, alert and oriented.
--- NOTE | 2018-09-26 09:45 | NUR ---
patient arrived on unit via stretcher. patient is alert and oriented, in no distress. bed in lowest position and call evans within reach. parikh in place and CBI is flowing. emptied 1200mL of oliver colored urine from parikh bag. patient in no pain or distress at this time.
[2018-09-26 09:50] VITALS: BP 175/81
[2018-09-26 09:55] VITALS: BP 175/81
[2018-09-26] MEDS ORDERED: ACETAMINOPHEN/CODEINE 300MG - 30MG TAB PO PRN ×2 (10:15)
[2018-09-26] MEDS ORDERED: DEXTROSE 5%/0.45% SOD CHL 1,000 ML IV ONE (10:15)
[2018-09-26] MEDS ORDERED: GENTAMICIN SULFATE 240 MG in SODIUM CHLORIDE 0.9% 100 ML IV ONE (11:30)
[2018-09-26 11:40] VITALS: BP 170/93
[2018-09-26] MEDS: TRIMETHOPRIM/SULFAMETHOXAZOLE 160-800 MG TAB PO SCH ×2 (12:00→22:29)
--- NOTE | 2018-09-26 15:22 | Operative Report ---
DATE OF PROCEDURE: 09/26/2018 SURGEON: Omar Mcneal MD PREOPERATIVE DIAGNOSIS: Urinary retention. POSTOPERATIVE DIAGNOSIS: Urinary retention. OPERATIVE PROCEDURE PERFORMED: Redo transurethral resection of the prostate. ANESTHESIA: Spinal with IV sedation. ESTIMATED BLOOD LOSS: Minimal. INDICATIONS: Mr. Nayana Ch is a 77-year-old male, who underwent a prior TURP three years ago, who presented with recent urinary retention. This could not be resolved with medical management. He now presents for definitive surgical management of this problem. PROCEDURE IN DETAIL: The patient was brought into the operating room, placed in supine position and after administration of spinal anesthesia was placed in dorsal lithotomy position and prepped and draped in the usual sterile fashion. Cystourethroscopy was performed using a 21-Sol[place] Islander cystoscope. The anterior and posterior urethra were noted to be normal. The prostate revealed evidence of prior resection with significant residual or regrowth of tissue on the left side. There was also significant amount of tissue seen anteriorly. The bladder was entered without difficulty. Upon entrance into the bladder, the ureteral orifices were in normal anatomical position and produced clear efflux. There were grade 2-3 trabeculations noted throughout the bladder with early cellule formation and a few small tics. There were no mucosal lesions identified. The bladder was left full and the cystoscope and sheath were removed. A 26-[place] Islander resectoscope sheath was placed in a retrograde fashion and the PenBlade resectoscope was used to perform the procedure. Beginning at the 1 o'clock position and proceeding in a clockwise fashion down to the 6 o'clock position, all of the adenomatous tissue between the bladder neck and the veru were resected down to level of the surgical capsule. There was no gross penetration or perforation of the capsule noted on that side. Hemostasis was obtained using electrocautery device. A similar procedure was performed on the contralateral side in a counter-clockwise fashion beginning at the 11 o'clock position and ending up in the 6 o'clock position. Again, there was no gross penetration or perforation of the capsule on that side. Residual tissue on the roof and floor of the gland were resected as well and the inSparq evacuator was used to remove all chips. Once adequate hemostasis was ensured, the bladder was left full and the resectoscope and sheath were removed. The patient was noted to have brisk urinary flow with coude. A 24-Sol[place] Islander three-way coude catheter was then placed in a retrograde fashion and the balloon inflated with approximately 40 mL of sterile water. The urinary efflux was noted to be blood-tinged. The patient was returned to supine position and he was started on continuous bladder irrigation. He was transferred to a bed and taken to the postanesthesia care unit in good condition. Of note, the needle and instrument count were correct at the conclusion of the case. MD KEYSHAWN Shields/MODL /[id number]
[2018-09-26 15:50] VITALS: BP 123/93
--- NOTE | 2018-09-26 16:10 | NUR ---
SOCIAL WORK INITIAL ASSESSMENT Contract Serviceman to bedside to discuss plan of care with patient/family. CM/SW role and care transitions discussed. Anticipated discharge plan discussed along with duration of care. CM/SW discussed patients right to make decisions in care. CM/SW work hours given. Patient lives: IN HOUSE BY SELF Admit/Transfer: VIA ED POA/Emergency contact: DAUGHTER LYDIA GOLDSMITH Current/Previous Home Health: HE STATES HE THINKS IT IS GIRLING PCP/Follow-up Care: BEREKET Current/Previous DME: [employer] Other Services: NONE Employment Status: RETIRED Areas of Concerns: NONE Referral Needs: NONE Education Needs: NONE IMM/FARFAN given and signed (if applicable): UPON ADMISSION Goal for discharge: RETURN HOME CM/SW left business card at the bedside with contact information. Name and number was also written on the patients whiteboard. Patient verbalized understanding of discussion. CM will follow-up with ongoing discharge and transition of care needs.
--- NOTE | 2018-09-26 18:50 | NUR ---
rounded with robot technician nurse, patient aware of change and in no distress. call evans within reach and bed in lowest position.
--- NOTE | 2018-09-26 19:15 | NUR ---
Report received and walking rounds complete. Pt resting in bed and in no apparent distress. Pt has continuous bladder irrigation, room air, and no tele. All safety measures ensured, bed alarm on, and call evans near.
[2018-09-26] MEDS ORDERED: FENTANYL CITRATE/PF 100MCG/2 ML INJ ONE (19:29)
[2018-09-26] MEDS ORDERED: MIDAZOLAM HCL 2 MG/2 ML VIAL ONE (19:29)
[2018-09-26 20:00] VITALS: BP 139/63
[2018-09-26 22:00] VITALS: BP 139/63
[2018-09-27] VITALS: BP 155/72
[2018-09-27 04:00] VITALS: BP 145/67
[2018-09-27 06:01] LABS: ANION GAP 9.4 mmol/L (8-16); BLOOD UREA NITROGEN 12 mg/dL (7-26); BUN/CREATININE RATIO 15 (6-25); CALCIUM 8.2 mg/dL (8.4-10.2); CARBON DIOXIDE 28 mmol/L (22-29); CHLORIDE 107 mmol/L (98-107); CREATININE, SERUM 0.81 mg/dL (0.72-1.25); EST GLOMERULAR FILTRATION RATE > 60 ML/MIN (60-); GLUCOSE 96 mg/dL (74-118); POTASSIUM 3.4 mmol/L (3.5-5.1); SODIUM 141 mmol/L (136-145)
[2018-09-27 07:50] VITALS: BP 168/79
[2018-09-27] MEDS ORDERED: IBUPROFEN 600 MG PO SCH (08:00)
[2018-09-27] MEDS ORDERED: NON-FORMULARY MEDICATION (Ondansetron Hcl* (Zofran*) 4 MG) PO SCH (08:00)
[2018-09-27] MEDS ORDERED: IBUPROFEN 600 MG TAB PO PRN (08:45)
[2018-09-27] MEDS ORDERED: ONDANSETRON HCL 4 MG ORAL DISINTEGRATING TAB PO PRN (08:45)
[2018-09-27] MEDS ORDERED: PANTOPRAZOLE SOD 40 MG TABEC PO SCH ×2 (09:00)
[2018-09-27] MEDS ORDERED: CARVEDILOL 3.125 MG TAB PO SCH (09:00)
[2018-09-27] MEDS ORDERED: DUTASTERIDE 0.5 MG CAP PO SCH (09:00)
--- NOTE | 2018-09-27 09:57 | NUR ---
Nutrition Screen Note RD Recommendation for Physician: -Consider ANGELA diet per MD. -Recommend to document pt's height in EMR. Plan of Care: RD following, monitoring for tolerance and adequacy Nutrition reason for involvement: Nutrition Risk Trigger-MST score of 2 Primary Diagnose(s): Urinary retention PMH: HTN, COPD, GERD, asthma Ht: Not recorded within EMR Wt:149 lb Unable to provide BMI or IBW-Ht is not recorded within EMR RD Assessment: (09/27): 77 YOM admitted for urinary retention Pt was seen d/t NST. Pt reported his appetite and weight have both been stable at home and is good now. Pt was seen finishing his breakfast, pt completed 75% of it so far. Pt denied N/V/C/D or any chewing or swallowing issues. Pt had no other questions or concerns and denied any recent unintentional weight loss. Chart reviewed. Labs and meds reviewed. K-low. Will continue to monitor. Current Diet: Regular diet Malnutrition Evaluation (09/27) The patient does not meet criteria for a specified degree of malnutrition at this time. Will re-evaluate at follow-up as appropriate. Diet Education Needs Assessment: Diet education not indicated. Pt is on regular diet. Nutrition Care Level: 1-low Britt Hamilton, RD,LD
[2018-09-27] MEDS: TRIMETHOPRIM/SULFAMETHOXAZOLE 160-800 MG TAB PO SCH (11:24)
[2018-09-27 12:06] VITALS: BP 185/81
[2018-09-27] MEDS ORDERED: BACTRIM DS TAB1 EACH PO (12:16)
--- NOTE | 2018-09-27 13:48 | NUR ---
pt was able to void x2 today. Discharge instructions provided to pt at this time. VS stable, home medications were restarted except for Aspirin and ABT per MD orders. Urinal was provided at bedside. A&O x3, able to state needs and follow commands. IV patent, no redness or swelling to insertion site.
== END 2018-09-27 13:40 | disposition home or self-care (01) ==
LOC: OR 05:08 → PACU V 08:57 → IMCU 09:35
PROVIDERS: ADMIT Urology; ATTEND Urology
DX: R33.9 Retention of urine, unspecified (principal); Z01.812 Encounter for preprocedural laboratory examination; G40.911 Epilepsy, unspecified, intractable, with status epilepticus; J44.9 Chronic obstructive pulmonary disease, unspecified; Z99.81 Dependence on supplemental oxygen; Z80.9 Family history of malignant neoplasm, unspecified; Z82.49 Family history of ischemic heart disease and other diseases of the circulatory system
CPT/HCPCS: 36415 ×2; 52630; 71046; 80048 ×2; 85025; 88305; 93005; G0378 ×2; J0696; J1580; J2250; J7050; S0164